=== PATIENT | female | born 1965 | race American Indian/Alaskan Native ===

== ENCOUNTER 2021-01-01 11:57 | Outpatient (CLI) | payer OTHER ==
--- NOTE | 2021-01-02 11:03 | Mammography Report ---
DIGITAL SCREENING MAMMOGRAM WITH TOMOSYNTHESIS WITH CAD, 01/01/2021 CLINICAL INFORMATION / INDICATION: Routine Screening Mammography. TECHNIQUE: Digital bilateral 2D and 3D mammography with tomosynthesis was obtained in the craniocaud al and mediolateral oblique projections. Computer-Aided Detection (CAD) analysis was used for interp retation of this study. COMPARISON: 03/09/2019, 07/18/2018, 12/26/2019 FINDINGS: Breast Density: There are scattered areas of fibroglandular density. No dominant mass, suspicious calcifications, or architectural distortion in the left breast. There is a 7 mm mass in the 6:00 position of the right breast, middle depth. It is difficult to deter mine if this has been present on prior mammograms, as previous mammograms are all 2-D. This mass is m uch better visualized on tomosynthesis imaging. Recommend further evaluation with right breast ultras ound and possibly spot compression views. Right breast biopsy clip. IMPRESSION: 7 mm right breast mass at 6:00, middle depth. Recommend further evaluation with right jeana ast ultrasound and possibly spot compression imaging. Follow up recommendation: Ultrasound BI-RADS Category 0: Incomplete. Needs additional imaging evaluation and/or prior mammograms for antonio shaw. A "normal" or negative report should not discourage follow up or biopsy of a clinically significant f inding. A written summary of these findings will be mailed to the patient. The patient will be entered into a mammography reporting system which will generate a reminder letter for the patient's next appointmen t at the appropriate interval. The [employer] recommends yearly mammograms starting at age 40 and continuing as l tevin as a woman is in good health. Breast MRI is recommended for women with an approximate 20-25% or greater lifetime risk of breast cancer, including women with a strong family history of breast or ova walter cancer or who have been treated for Hodgkin's disease. Signer Name: Nita Perez MD Signed: 01/02/2021 10:59 AM Workstation Name: [id number]
== END 2021-01-01 11:58 | disposition home or self-care (01) ==
LOC: SPVWC 11:57
PROVIDERS: ATTEND Surgery
DX: Z12.31 Encounter for screening mammogram for malignant neoplasm of breast (principal); N63.14 Unspecified lump in the right breast, lower inner quadrant
CPT/HCPCS: 77063; 77067

== ENCOUNTER 2021-01-09 14:03 | Outpatient (CLI) | payer OTHER ==
--- NOTE | 2021-01-09 15:23 | Mammography Report ---
RIGHT DIGITAL DIAGNOSTIC MAMMOGRAM WITH CAD CONVENTIONAL, 01/09/2021 RIGHT LIMITED BREAST ULTRASOUND CLINICAL INFORMATION / INDICATION: Patient presents as a callback from screening mammogram for furthe r evaluation of a nodular density in the right breast. TECHNIQUE: Digital right mammographic imaging was performed. Spot compression views were obtained. Li mited ultrasound was performed. This examination was interpreted with the benefit of Computer-Aided D etection (CAD) analysis. COMPARISON: Prior mammograms 01/01/2021, 12/26/2019, and 07/18/2018 FINDINGS: Breast Density: There are scattered areas of fibroglandular density. MAMMOGRAPHIC FINDINGS: Spot compression views reveal a persistent lobulated circumscribed nodular den sity in the 6:00 position of the right breast, middle depth, measuring up to 6 mm. This was likely pr esent and not appreciably changed compared with prior mammogram from 2019, just seen to better advant age on the more recent study with tomosynthesis. Targeted ultrasound was performed for further evalua tion. ULTRASOUND FINDINGS: Targeted ultrasound evaluation was performed of the area of interest. Targeted ultrasound of the 6:00 right breast is unremarkable. There is no sonographic correlate for the nodul ar density seen mammographically. IMPRESSION: 1. A small nodular density in the right breast is considered probably benign and may reflect an intra mammary lymph node. Recommend right diagnostic mammogram in 6 months to ensure stability. Follow up recommendation: Short term follow up in 6 months. BI-RADS Category 3: Probably Benign. Followup in 6 months. A "normal" or negative report should not discourage follow up or biopsy of a clinically significant f inding. A written summary of these findings will be mailed to the patient. The patient will be entered into a mammography reporting system which will generate a reminder letter for the patient's next appointmen t at the appropriate interval. According to the [employer], yearly mammograms are recommended starting at age 40 and continuing as long as a woman is in good health. Breast MRI is recommended for women with an sabino roximately 20-25% or greater lifetime risk of breast cancer, including women with a strong family his tory of breast or ovarian cancer and women who have been treated for Hodgkin's disease. Signer Name: Mee Ross MD Signed: 01/09/2021 3:19 PM Workstation Name: [id number]
== END 2021-01-09 14:04 | disposition home or self-care (01) ==
LOC: SPVWC 14:03
PROVIDERS: ATTEND Surgery
DX: R92.8 Other abnormal and inconclusive findings on diagnostic imaging of breast (principal)